=== PATIENT | male | born 1985 | race Caucasian/White ===

== ENCOUNTER 2024-01-24 18:27 | Emergency (ER) | payer OTHER, SELFPAY ==
[2024-01-24 18:32] VITALS: BP 136/100
--- NOTE | 2024-01-24 19:07 | ED.GENMED ---
History of Present Illness
General
Chief Complaint: Musculo-Skeletal Complaint
Time Seen by Provider: 01/24/24 19:07
Travel History
Have you had any contact with someone who has COVID-19?: No
Do you have any symptoms of coronavirus? Fever > 100 degrees, chills, cough, shortness of breath, sore throat, loss of taste or smell, muscle aches, or headache?: No
History of Present Illness
History of Present Illness:
HPI: Patient presents with severe neck pain. This feels similar to prior muscular etiology and states that lidocaine injections have helped in the past. He points to the left posterolateral neck musculature with radiation down toward the
trapezius. He denies any new trauma. The patient is on multiple meds for fibromyalgia/nerve pain including gabapentin, Cymbalta, Flexeril.
EXAM:
GENERAL: Well appearing in mild to moderate distress primarily laying on his left side propping his neck up on a pillow
HEENT: Moist oral mucosa
NECK: Some vague tenderness along the posterolateral neck�he reports pain located along palpating the muscle but not necessarily tender to palpation; decreased active range of motion of the cervical spine due to pain
NEUROLOGIC: Excellent strength all extremities, no coordination deficits, normal upper extremity function
PSYCHIATRIC: Appropriate mental status, normal insight and judgement
EXTREMITIES: Nontender, no edema, moves all extremities equally
SKIN: No rash, no lesions
TIME OF INITIAL ENCOUNTER:
NUMBER AND COMPLEXITY OF PROBLEMS ADDRESSED AT THE ENCOUNTER
� Chronic conditions affecting care: Fibromyalgia, migraines, hyperlipidemia
� Acute Exacerbation and/or Progression of Chronic Illness: This is an acute problem but has had similar episodes in the past.
� Differential Diagnosis includes: Muscle strain, cervical radiculopathy, exacerbation of fibromyalgia
AMOUNT AND/OR COMPLEXITY OF DATA TO BE REVIEWED AND ANALYZED
� I performed an independent evaluation of and my interpretation is:
EKG:
CT:
X-rays:
Laboratory Studies:
Other:
� Review of other/old records: I look for old records in [employer] however the no old records available for review
� Clinical information was obtained by an independent historian: I spoke to the mother at bedside
� Prescriptions/Medications Considered but not given:
� Further testing considered but not performed:
RISK OF COMPLICATIONS AND/OR MORBIDITY OR MORTALITY OF PATIENT MANAGEMENT
� Social determinants of health affecting care: Lives at home
� Discussion with other providers:
� Escalation of care including admission/observation vs risk of discharge considered: At patient's request, I did try a trigger point injection into the left paraspinal musculature however he reports no significant improvement.
We also gave IM Toradol he states the pain is persisting. Will add lidocaine patch and Tylenol. The pain appears to be muscular in etiology however he reports no significant improvement after trigger point injection was given. We reviewed PDMP
website�no narcotics noted�will give short course of narcotic analgesia and will to also try prednisone for the possibility of cervical radiculopathy. I have also given her the contact information for local resolution specialist.
Phy Exam
Physical Exam
Physical Exam:
See HPI
Course
Orders/Labs/Results
Orders:
Orders
01/24/24 19:20
Ketorolac [Toradol] 30 mg IM NOW STA
01/24/24 20:07
Acetaminophen [Tylenol] 1,000 mg PO NOW STA
Lidocaine [Lidocaine 4% Patch] 1 patch TOPICAL NOW STA
01/24/24 21:39
Oxycodone/Acetaminophen [Percocet 5/325] 2 tablet PO NOW STA
Prednisone [Deltasone] 50 mg PO NOW STA
Vital Signs
Initial and Last Documented VS:
Initial Vital Signs
Temp Pulse Resp BP Pulse Ox
99.4 F 99 17 136/100 98
01/24/24 18:32 01/24/24 18:32 01/24/24 18:32 01/24/24 18:32 01/24/24 18:32
Last Documented Vital Signs
Temp Pulse Resp BP Pulse Ox
99.4 F 99 17 136/100 98
01/24/24 18:32 01/24/24 18:32 01/24/24 18:32 01/24/24 18:32 01/24/24 18:32
*Critical Care Note
Total Time (30-74mins, 75-104mins- exclusive of procedures): Not Applicable
ED Attending Note
-
Portions of this chart may have been created with voice recognition software.� Occasional wrong word or��sound alike� substitutions may have occurred due to the inherent limitations of voice recognition software.
Discharge Plan
Departure
Patient Disposition: Home (Routine Discharge)
Date of Disposition: 01/24/24
Time of Disposition: 21:40
Patient with high blood pressure during this ER visit?: Yes
Discharge Problem:
Muscle spasm
Instructions: Muscle Strain (DC)
Prescriptions:
New
oxycodone-acetaminophen [Endocet] 5-325 mg tablet
1 - 2 tab PO TID PRN (Reason: Pain) Qty: 12 0RF
prednisone 50 mg tablet
50 mg PO DAILY Qty: 4 0RF
Referrals:
Kennedi Hickey DO [Active] - Follow up in 2-3 days
Antwan Donis MD [Active] - Follow up in 2-3 days
Katie Goldberg DO [Family Provider] -
Activity Restrictions/Additional Instructions:
I have given you the contact information for 2 different spine doctors. In case this could be coming from a pinched nerve, the initial treatment is steroid medication�I sent a prescription to your pharmacy. I also sent a prescription for short
course of narcotic to your pharmacy. If you take the narcotic, consider taking some like MiraLAX to help event constipation.
Interventions
Interventions:
*Risk Screen - Suicide Last Done: 01/24/24 18:43
*General Assessment Last Done: 01/24/24 18:43
*Neglect/Abuse Screening Last Done: 01/24/24 18:43
ED- Fall Risk Assessment Last Done: 01/24/24 18:43
*ED COVID-19 Vaccine History Last Done: 01/24/24 18:43
ED-Musculoskeletal Assessment Last Done: 01/24/24 18:43
Discharge Date and Time
Print Language: ANGUILLAN
[2024-01-24] MEDS: TORADOL 30 MG IM (19:30)
[2024-01-24] MEDS: TYLENOL 1000 MG PO (20:10)
[2024-01-24] MEDS: LIDOCAINE 4% PATCH 1 PATCH TOPICAL (20:10)
[2024-01-24] MEDS: PERCOCET 5/325 2 TABLET PO (21:43)
[2024-01-24] MEDS: DELTASONE 50 MG PO (21:44)
== END 2024-01-24 22:37 | disposition home or self-care (01) ==
LOC: EMR 18:27
PROVIDERS: EMERGENCY PHYSICIAN Emergency Medicine; FAMILY PHYSICIAN Family Medicine
DX: M62.838 Other muscle spasm (principal); M54.2 Cervicalgia
CPT/HCPCS: 99282; 96372